=== PATIENT | male | born 1970 | race Caucasian/White ===

== ENCOUNTER 2019-07-06 08:11 | Emergency (ER) | payer SELFPAY ==
[~2019-07-06] VITALS: Ht 190.5 cm; Wt 113.6 kg
[2019-07-06] MEDS ORDERED: orphenadrine citrate 60mg/2ml inj. IM ONE (10:05)
[2019-07-06] MEDS ORDERED: ketorolac tromethamine 15mg/ml inj. IM ONE (10:05)
[2019-07-06 11:30] LABS: ALBUMIN 4.3 G/DL (3.4-5.0); ANION GAP 10 (8-16); BLOOD UREA NITROGEN 20 MG/DL (7-18); BUN/CREATININE RATIO 18.7 (5.4-32.0); CHLORIDE 104 MMOL/L (99-107); CREATININE 1.07 MG/DL (0.60-1.10); GLUCOSE 120 MG/DL (70-104); MAGNESIUM 1.8 MG/DL (1.5-2.4); PHOSPHORUS 2.4 MG/DL (2.3-4.5); POTASSIUM 4.3 MMOL/L (3.5-5.1); SODIUM 139 MMOL/L (135-145); TOTAL CARBON DIOXIDE 25.1 MMOL/L (24-32); eGFR 73 ML/MIN
[2019-07-06] MEDS ORDERED: morphine 2 MG/ML inj. syringe IV ONE (11:45)
[2019-07-06] MEDS ORDERED: morphine 4 MG/ML inj SYRINge IM ONE (12:25)
[2019-07-06] MEDS ORDERED: LORazepam 0.5 MG tablet PO STA (12:48)
[2019-07-06] MEDS ORDERED: cyclobenzaprine 10mg tablet PO ONE ×2 (14:55→18:10)
[2019-07-06] MEDS ORDERED: LORazepam 2 mg/ml vial IM ONE (14:55)
--- NOTE | 2019-07-06 14:56 | NUR ---
pt in [facility]ri and cannot lay flat new meds ordered and rn bringing them to [facility]ri
[2019-07-06] MEDS ORDERED: LORazepam 1 MG tablet PO ONE (18:10)
[2019-07-06] MEDS ORDERED: morphine 4 MG/ML inj SYRINge IV ONE ×2 (21:00→22:15)
[2019-07-06 21:29] VITALS: BP 136/76
--- NOTE | 2019-07-06 21:54 | NUR ---
pt being transfered to [facility], report was tried to call but no rn was assigned to pt yet, awating call back
== END 2019-07-06 23:54 | disposition short-term general hospital (02) ==
LOC: ER 08:11
DX: G95.89 Other specified diseases of spinal cord (principal); M54.5 Low back pain; M25.80 Other specified joint disorders, unspecified joint; E11.9 Type 2 diabetes mellitus without complications
CPT/HCPCS: 36415; 72148; 72195; 80048; 83735; 84100; 96372; 96374; 96376; 99285; J1885; J2060; J2270; J2360

== ENCOUNTER 2025-01-30 10:16 | Outpatient (CLI) | payer BC ==
--- NOTE | 2025-01-30 12:37 | RADIOLOGY REPORT ---
PROCEDURE: MR MRI LUMBAR SPINE INDICATION: OTHER SPONDYLOSIS, LUMBOSACRAL REGION Exam Date: 01/30/2025 10:40 AM COMPARISON: None TECHNIQUE: MRI lumbar spine without intravenous contrast. FINDINGS: Multilevel disc degeneration. Alignment: Grade 1 retrolisthesis of L5 on S1. Vertebrae: Vertebral body height is well maintained without evidence of a recent compression fracture. Conus: Conus medullaris terminates at the L1 level. Following axial levels: T12-L1: The disc configuration is normal. No spinal canal or neural foraminal stenosis. The facet joints are normal. L1-2: The disc configuration is normal. No spinal canal or neural foraminal stenosis. Facet arthrosis. L2-3: The disc configuration is normal. No spinal canal or neural foraminal stenosis. Facet arthrosis. L3-4: Disc desiccation. Disc bulge with superimposed central disc protrusion. Mild spinal canal stenosis. No neural foraminal stenosis. Facet arthrosis. L4-5: Disc desiccation and disc bulge. Left subarticular zone stenosis. No neural foraminal stenosis. Facet arthrosis. L5-S1: Grade 1 retrolisthesis of L5 on S1 by 3.8 mm. Disc desiccation and disc bulge. Left subarticular zone stenosis with left descending S1 nerve root compression from bulge. Mild bilateral foraminal stenosis. Facet arthrosis. IMPRESSION: Multilevel disc degeneration. Mild spinal canal stenosis at L3-L4 level. Mild bilateral foraminal stenosis at L5-S1 level.
== END 2025-01-30 23:59 | disposition home or self-care (01) ==
LOC: MRI02 10:16
PROVIDERS: ATTEND Physical Medicine & Rehabilitation
DX: M51.17 Intervertebral disc disorders with radiculopathy, lumbosacral region (principal); M47.897 Other spondylosis, lumbosacral region; F41.9 Anxiety disorder, unspecified; M51.360 Other intervertebral disc degeneration, lumbar region with discogenic back pain only; M48.07 Spinal stenosis, lumbosacral region
CPT/HCPCS: 72148